=== PATIENT | male | born 1945 | race Caucasian/White ===

== ENCOUNTER 2020-08-31 09:14 | Outpatient (CLI) | payer MEDICARE ==
[2020-09-27] MEDS ORDERED: OMEP40CA8 PO (09:21)
== END 2020-08-31 23:59 | disposition home or self-care (01) ==
LOC: ROC 09:14
PROVIDERS: ATTEND Radiology Radiation Oncology
DX: C34.90 Malignant neoplasm of unspecified part of unspecified bronchus or lung (principal); R91.1 Solitary pulmonary nodule
CPT/HCPCS: G0463

== ENCOUNTER 2020-09-27 07:26 | Day surgery (SDC) | payer MEDICARE ==
[~2020-09-27] VITALS: Ht 170.2 cm; Wt 82.1 kg
[2020-09-27 08:37] VITALS: BP 158/95
[2020-09-27] MEDS ORDERED: FENTANYL PF 100 MCG/2ML ONE (09:04)
[2020-09-27] MEDS ORDERED: MIDAZOLAM 1 MG/ML, 5ML ONE (09:04)
[2020-09-27] MEDS ORDERED: FLUMAZENIL 0.1 MG/1 ML, 5ML ONE (09:05)
[2020-09-27] MEDS ORDERED: NALOXONE 1 MG/ML, 2ML ONE (09:05)
[2020-09-27] MEDS ORDERED: TACR1CAP5 PO (09:07)
[2020-09-27] MEDS ORDERED: METO50TA82 PO (09:21)
[2020-09-27] MEDS ORDERED: ISOS10TA6 PO (09:21)
[2020-09-27] MEDS ORDERED: ROSU40TA PO (09:21)
[2020-09-27] MEDS ORDERED: OMEP40CA42 PO (09:21)
[2020-09-27] MEDS ORDERED: TIOT4MIS3 INH (09:21)
[2020-09-27] MEDS ORDERED: ASPI81TA45 PO (09:21)
[2020-09-27] MEDS ORDERED: LOPE2CAP PO (09:21)
[2020-09-27] MEDS ORDERED: GLIP1TAB3 PO (09:21)
[2020-09-27] MEDS ORDERED: EMPA10TA PO (09:21)
[2020-09-27] MEDS ORDERED: ALEN70TA77 PO (09:21)
[2020-09-27] MEDS ORDERED: LOSA100T14 PO (09:21)
[2020-09-27] MEDS ORDERED: MAGN400T26 PO (09:21)
[2020-09-27] MEDS ORDERED: PRED5TAB PO (09:21)
[2020-09-27] MEDS ORDERED: DULA1.5P SC (09:21)
== END 2020-09-27 12:25 | disposition home or self-care (01) ==
LOC: OUT 07:26
PROVIDERS: ATTEND Radiology Radiation Oncology
DX: R91.1 Solitary pulmonary nodule (principal); D02.22 Carcinoma in situ of left bronchus and lung; I10 Essential (primary) hypertension; E11.9 Type 2 diabetes mellitus without complications; J44.9 Chronic obstructive pulmonary disease, unspecified; G47.33 Obstructive sleep apnea (adult) (pediatric); E78.5 Hyperlipidemia, unspecified; Z79.82 Long term (current) use of aspirin; Z79.84 Long term (current) use of oral hypoglycemic drugs; Z79.899 Other long term (current) drug therapy; Z85.46 Personal history of malignant neoplasm of prostate; Z87.891 Personal history of nicotine dependence; Z94.0 Kidney transplant status; Z98.890 Other specified postprocedural states
CPT/HCPCS: 32408; 32553; 71045; 82962; 88305; 88333; 99156; 99157; C2613; J2250; J3010; 10035; 77012; 77014; A4648; J2310

== ENCOUNTER 2021-02-15 08:44 | Outpatient (CLI) | payer MEDICARE ==
[~2021-02-15 08:44] MED LIST: ALEN70TA77 PO; ASPI81TA45 PO; DULA1.5P SC; EMPA10TA PO; GLIP1TAB3 PO; ISOS10TA6 PO; LOPE2CAP PO; LOSA100T14 PO; MAGN400T26 PO; METO50TA82 PO; OMEP40CA8 PO; PRED5TAB PO; ROSU40TA PO; TACR1CAP5 PO; TIOT4MIS3 INH
== END 2021-02-15 23:59 | disposition home or self-care (01) ==
LOC: ROC 08:44
PROVIDERS: ATTEND Radiology Radiation Oncology
DX: Z08 Encounter for follow-up examination after completed treatment for malignant neoplasm (principal); Z85.118 Personal history of other malignant neoplasm of bronchus and lung
CPT/HCPCS: G0463